=== PATIENT | female | born 1995 | race Caucasian/White ===

== ENCOUNTER 2016-04-21 06:41 | Emergency (ER) | payer SELFPAY ==
[2016-04-21] MEDS ORDERED: METOCLOPRAMIDE HCL 10 MG TABLET PO ONE (07:26)
--- NOTE | 2016-04-21 07:45 | ER Document Report ---
ED General - General Chief Complaint: Vag Bleeding, +preg <12wks Stated Complaint: LOWER ABDOMINAL CRAMPING Mode of Arrival: Ambulatory Information source: Patient Notes: Patient presents to the emergency department with complaints of possible miscarriage. Patient reports that she discovered she was recently she took a home test. Yesterday she went to a clinic and was told that she was probably having a miscarriage because they did not detect a gestational sac or a heart beat. Patient reports she started having some abdominal cramps today. She denies vaginal bleeding. She denies trauma. She denies fever vomiting diarrhea. Patient is TRAVEL OUTSIDE OF THE [place] IN LAST 30 DAYS: No - HPI Onset: This morning Onset/Duration: Sudden Quality of pain: Cramping Pain Level: 4 - declines pain medication Associated symptoms: Nausea Exacerbated by: Denies Relieved by: Denies Similar symptoms previously: Yes Recently seen / treated by doctor: Yes - Related Data Allergies/Adverse Reactions: Penicillins Allergy (Verified 04/21/16 06:44) Past Medical History - General Information source: Patient Last Menstrual Period: 02/18/17 - Social History Smoking Status: Unknown if Ever Smoked Cigarette use (# per day): No Chew tobacco use (# tins/day): No Frequency of alcohol use: None Drug Abuse: None Occupation: student Lives with: Family Family History: None Patient has suicidal ideation: No Patient has homicidal ideation: No - Medical History Medical History: Negative Renal/ Medical History: Denies: Hx Peritoneal Dialysis Past Surgical History: Reports: Hx Section Review of Systems - Review of Systems Notes: Review HPI for review of systems., All other systems negative Physical Exam - Vital signs Vitals: Temp Pulse Resp BP Pulse Ox 98.2 F 94 16 133/89 H 95 04/21/16 06:43 04/21/16 06:43 04/21/16 06:43 04/21/16 06:43 04/21/16 06:43 - Notes Notes: PHYSICAL EXAMINATION: GENERAL: Well-appearing and in no acute distress HEAD: Atraumatic, normocephalic. EYES: Pupils equal round , extraocular movements intact, sclera anicteric, conjunctiva are normal. ENT: nares patent, Moist mucous membranes. NECK: Normal range of motion, supple without lymphadenopathy LUNGS: CTAB and equal. No wheezes rales or rhonchi. HEART: Regular rate and rhythm without murmurs ABDOMEN: Soft, no pain with palpation. No guarding, no rebound c/o generalized cramping, BACK: C/O low back pain EXTREMITIES: Normal range of motion, no pitting edema. No cyanosis. NEUROLOGICAL: Cranial nerves grossly intact. Normal sensory/motor exams. PSYCH: Normal mood, normal affect. SKIN: Warm, Dry, normal turgor, no rashes or lesions noted - Genitourinary External exam: Normal Speculum exam: Cervix closed, Vaginal discharge Vaginal bleeding: None Bimanuel exam: Normal Course - Re-evaluation Re-evalutation: 04/21/16 09:26 Discussed STD cultures pending with patient. She reports she is now worried about STD. She does report history of genital herpes. No evidence of a flareup at this time. Patient was instructed on ultrasound. Patient was also instructed on hCG. She was instructed on importance of follow-up for repeat hCG. She was also instructed on the health department. - Vital Signs Vital signs: Temp Pulse Resp BP Pulse Ox 97.8 F 92 16 127/54 H 95 04/21/16 09:45 04/21/16 09:45 04/21/16 09:45 04/21/16 09:45 04/21/16 09:45 - Laboratory Result Diagrams: 04/21/16 07:55 04/21/16 07:55 Laboratory results interpreted by me: 04/21/16 04/21/16 04/21/16 07:55 07:55 07:55 MCH 26.7 L RDW 15.1 H Alkaline Phosphatase 127 H Beta HCG, Quant 60258.00 H Ur Leukocyte Esterase TRACE H - Diagnostic Test Radiology reviewed: Image reviewed, Reports reviewed - IUP sac, 6w1d, no pole Procedures - Pelvic Exam Pelvic exam Cultures obtained: Yes Wet prep obtained: Yes Herpes culture obtained: No POC sent to lab: No Foreign body removed: No Bimanual exam performed: Yes 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 No yolk sac or pole were identified. *Follow-up April 23 for a repeat hCG. Contact Pat at [phone] on April 26 between 11 AM to 11 PM [place] [address] *Take medication as prescribed- monitor for signs of allergic reaction, stop taking for trouble swallowing, hives, concerns *Push fluids *Follow up with your primary care provider, DEMO COORDINATOR or the health department within one week for recheck *Plan urine recheck in one week *Monitor your blood pressure. Your blood pressure was elevated today. This may be because you were anxious, in pain or because you need medication. It is important to follow up with your primary care provider for full evaluation. *Return to ED for worsening condition, changes, needs, increased abdominal pain vaginal bleeding concerns Prescriptions: Cefpodoxime Proxetil [Vantin 100 mg Tablet] 1 tab PO Q12 #14 tab Forms: Elevated Blood Pressure, Follow-Up Laboratory Testing, Return to School
[2016-04-21 08:16] LABS: ABSOLUTE LYMPHOCYTES (AUTO) 2.5 10^3/uL (0.5-4.7); ABSOLUTE MONOCYTES (AUTO) 0.5 10^3/uL (0.1-1.4); ABSOLUTE NEUT (AUTO) 5.9 10^3/uL (1.7-8.2); BASOPHILS % (AUTO) 0.4 % (0-2); EOSINOPHILS % (AUTO) 0.6 % (0-6); HEMATOCRIT 40.3 % (36.0-47.0); HEMOGLOBIN 13.2 g/dL (12.0-15.5); HGB HCT DIFFERENCE -0.7; LYMPHOCYTES % (AUTO) 27.7 % (13-45); MEAN CORPUSCULAR HEMOGLOBIN 26.7 pg (27.0-33.4); MEAN CORPUSCULAR HGB CONC 32.8 g/dL (32.0-36.0); MEAN CORPUSCULAR VOLUME 81 fl (80-97); MONOCYTES % (AUTO) 5.6 % (3-13); RED BLOOD COUNT 4.96 10^6/uL (3.72-5.28); RED CELL DISTRIBUTION WIDTH 15.1 % (11.5-14.0); SEGMENTED NEUTROPHILS % (AUTO) 65.7 % (42-78)
[2016-04-21 08:20] LABS: APPEARANCE,URINE SLIGHTLY-CLOUDY; BILIRUBIN,URINE NEGATIVE (NEGATIVE); GLUCOSE, URINE NEGATIVE (NEGATIVE); KETONES,URINE NEGATIVE (NEGATIVE); LEUKOCYTE ESTERASE,URINE TRACE (NEGATIVE); NITRITE,URINE NEGATIVE (NEGATIVE); PROTEIN,URINE NEGATIVE (NEGATIVE); URINE SPECIFIC GRAVITY 1.024; UROBILINOGEN,URINE NEGATIVE mg/dL (<2.0)
[2016-04-21 08:34] LABS: ALANINE AMINOTRANSFERASE 27 U/L (9-52); ALBUMIN 4.4 g/dL (3.5-5.0); ALKALINE PHOSPHATASE 127 U/L (38-126); ANION GAP 11 (5-19); ASPARTATE AMINO TRANSFERASE 17 U/L (14-36); BILIRUBIN,TOTAL 0.5 mg/dL (0.2-1.3); BLOOD UREA NITROGEN 9 mg/dL (7-20); CALCIUM 9.6 mg/dL (8.4-10.2); CARBON DIOXIDE 22 mmol/L (22-30); CHLORIDE 106 mmol/L (98-107); CREATININE RESULT 0.57 mg/dL (0.52-1.25); GLUCOSE 83 mg/dL (75-110); LIPASE 163.5 U/L (23-300); POTASSIUM 4.3 mmol/L (3.6-5.0); SODIUM 138.7 mmol/L (137-145); TOTAL PROTEIN 7.5 g/dL (6.3-8.2)
[2016-04-21 10:02] VITALS: BP 127/54
[2016-04-21 11:33] LABS: CHLAM PCR NOT DETECTED (NOT DETECT)
== END 2016-04-21 09:45 | disposition home or self-care (01) ==
LOC: ER 06:41
DX: O26.91 Pregnancy related conditions, unspecified, first trimester (principal); R10.9 Unspecified abdominal pain; Z3A.01 Less than 8 weeks gestation of pregnancy; Z88.0 Allergy status to penicillin
CPT/HCPCS: 36415; 76817; 80053; 81001; 83690; 84702; 85025; 86900; 86901; 87210; 87491; 87591; 99284

== ENCOUNTER 2016-04-26 15:58 | Emergency (ER) | payer MEDICAID ==
--- NOTE | 2016-04-26 16:48 | ER Document Report ---
ED Medical Screen (RME) - General Chief Complaint: Abdominal Cramping Stated Complaint: ITCHING,DISCHARGE Mode of Arrival: Ambulatory Information source: Patient Notes: 20-year-old female presents to the emergency department for repeat hCG. , LMP 02/19/16. Reports was seen in this ED 5 days ago and instructed to return for repeat blood work. I have greeted and performed a rapid initial assessment of this patient. A comprehensive ED assessment and evaluation of the patient, analysis of test results and completion of the medical decision making process will be conducted by additional ED providers. TRAVEL OUTSIDE OF THE [place] IN LAST 30 DAYS: No - Related Data Allergies/Adverse Reactions: Penicillins Allergy (Verified 04/26/16 16:37) Past Medical History - Social History Chew tobacco use (# tins/day): No Frequency of alcohol use: None Drug Abuse: None Renal/ Medical History: Denies: Hx Peritoneal Dialysis Past Surgical History: Reports: Hx Section Physical Exam - Vital signs Vitals: Temp Pulse Resp BP Pulse Ox 98.6 F 97 20 133/76 H 99 04/26/16 16:33 04/26/16 16:33 04/26/16 16:33 04/26/16 16:33 04/26/16 16:33 - General General appearance: Appears well, Alert In distress: None - Respiratory Respiratory status: No respiratory distress Course - Vital Signs Vital signs: Temp Pulse Resp BP Pulse Ox 98.6 F 97 20 133/76 H 99 04/26/16 16:33 04/26/16 16:33 04/26/16 16:33 04/26/16 16:33 04/26/16 16:33
[2016-04-26 19:37] LABS: APPEARANCE,URINE SLIGHTLY-CLOUDY; BILIRUBIN,URINE NEGATIVE (NEGATIVE); GLUCOSE, URINE NEGATIVE (NEGATIVE); KETONES,URINE NEGATIVE (NEGATIVE); LEUKOCYTE ESTERASE,URINE TRACE (NEGATIVE); NITRITE,URINE NEGATIVE (NEGATIVE); PROTEIN,URINE NEGATIVE (NEGATIVE); URINE SPECIFIC GRAVITY 1.019; UROBILINOGEN,URINE NEGATIVE mg/dL (<2.0)
--- NOTE | 2016-04-26 23:44 | ER Document Report ---
ED GI/ - General Mode of Arrival: Ambulatory Information source: Patient TRAVEL OUTSIDE OF THE [place] IN LAST 30 DAYS: No - HPI Patient complains to provider of: Vaginal discharge, Vaginal pain - "cramping" Onset: Other - 4 days ago Location: Vaginal Menstrual period history: Associated symptoms: Other - see above <SUMI COELLO - Last Filed: 04/27/16 06:40> - General Mode of Arrival: Ambulatory TRAVEL OUTSIDE OF THE [place] IN LAST 30 DAYS: No <EDUARDO GARG - Last Filed: 04/27/16 08:21> - General Chief Complaint: Abdominal Cramping Stated Complaint: ITCHING,DISCHARGE Notes: 20 year old female presents to the ED complaining of an increase in vaginal cramping, discharge, and itching that started 4 days ago. Patient states that she was seen in the ED 4 days ago for the same symptoms and was told she had a UTI. Patient has been taking Vantin for the UTI. Patient was also told to return to the ED for repeat blood work secondary to her . (SUMI COELLO) - Related Data Allergies/Adverse Reactions: Penicillins Allergy (Verified 04/26/16 16:37) Past Medical History - General Information source: Patient - Social History Smoking Status: Never Smoker Chew tobacco use (# tins/day): No Frequency of alcohol use: None Drug Abuse: None Family History: None Patient has suicidal ideation: No Patient has homicidal ideation: No Renal/ Medical History: Reports: Other - UTI. Denies: Hx Peritoneal Dialysis Past Surgical History: Reports: Hx Section <SUMI COELLO - Last Filed: 04/27/16 06:40> - General Information source: Patient - Social History Smoking Status: Never Smoker Chew tobacco use (# tins/day): No Frequency of alcohol use: None Drug Abuse: None Family History: None Patient has suicidal ideation: No Patient has homicidal ideation: No Renal/ Medical History: Denies: Hx Peritoneal Dialysis Past Surgical History: Reports: Hx Section <EDUARDO GARG - Last Filed: 04/27/16 08:21> Review of Systems - Review of Systems Constitutional: No symptoms reported EENT: No symptoms reported Cardiovascular: No symptoms reported Respiratory: No symptoms reported Gastrointestinal: No symptoms reported Genitourinary: No symptoms reported Female Genitourinary: See HPI, , Vaginal discharge, Other - vaginal cramping and itching Musculoskeletal: No symptoms reported Skin: No symptoms reported Hematologic/Lymphatic: No symptoms reported Neurological/Psychological: No symptoms reported -: Yes All other systems reviewed and negative <SUMI COELLO - Last Filed: 04/27/16 06:40> Physical Exam - General General appearance: Alert In distress: None - HEENT Head: Normocephalic, Atraumatic Eyes: Normal Extraocular movements intact: Yes Pupils: PERRL - Respiratory Respiratory status: No respiratory distress Breath sounds: Normal - Cardiovascular Rhythm: Regular Heart sounds: Normal auscultation - Abdominal Inspection: Normal - Back Back: Normal - Extremities General upper extremity: Normal inspection, Normal ROM General lower extremity: Normal inspection, Normal ROM - Neurological Neuro grossly intact: Yes Cognition: Normal Orientation: AAOx4 Young Coma Scale Eye Opening: Spontaneous [place] Coma Scale Verbal: Oriented Young Coma Scale Motor: Obeys Commands Young Coma Scale Total: 15 Speech: Normal - Psychological Associated symptoms: Normal affect, Normal mood - Skin Skin Temperature: Warm Skin Moisture: Dry Skin Color: Normal <SUMI COELLO - Last Filed: 04/27/16 06:40> Course <SUMI COELLO - Last Filed: 04/27/16 06:40> <EDUARDO GARG - Last Filed: 04/27/16 08:21> - Re-evaluation Re-evalutation: 04/27/16 Patient with uptrending hCG. Ultrasound within normal limits except for small subchorionic bleed. Patient with yeast infection symptoms after being on medication for UTI. Recommend Monistat. Follow-up with [facility]. Return if any worsening or concerning symptoms. (EDUARDO GARG) - Vital Signs Vital signs: Temp Pulse Resp BP Pulse Ox 97 F L 66 18 122/88 H 96 04/27/16 00:37 04/27/16 00:37 04/27/16 00:37 04/27/16 00:37 04/27/16 00:37 (SUMI COELLO) (EDUARDO GARG) - Laboratory Laboratory results interpreted by fl: 04/26/16 04/26/16 18:45 19:16 Beta HCG, Quant 67508.00 H Ur Leukocyte Esterase TRACE H (SUMI COELLO) (EDUARDO GARG) Discharge <SUMI COELLO - Last Filed: 04/27/16 06:40> <EDUARDO GARG - Last Filed: 04/27/16 08:21> - Discharge Clinical Impression: Yeast infection Vaginal bleeding in Qualifiers: Trimester: first trimester Qualified Code(s): O46.91 - Antepartum hemorrhage, unspecified, first trimester Condition: Stable Disposition: HOME, SELF-CARE Instructions: Bleeding During Early ([facility]), ([facility]) Additional Instructions: Please use Monistat [id number] for yeast infection. Please follow-up with your [facility] this week. Forms: Return to Work Scribe Attestation: 04/27/16 08:20 I personally performed the services described in the documentation, reviewed and edited the documentation which was dictated to the scribe in my presence, and it accurately records my words and actions. (EDUARDO GARG) Scribe Documentation - Scribe Written by Scribe:: Amaya Sainz, 04/27/2016 [id number] acting as scribe for :: Dee <SUMI COELLO - Last Filed: 04/27/16 06:40>
[2016-04-27 00:39] VITALS: BP 122/88
== END 2016-04-27 00:37 | disposition home or self-care (01) ==
LOC: ER 15:58
DX: O46.91 Antepartum hemorrhage, unspecified, first trimester (principal); B37.9 Candidiasis, unspecified; R10.9 Unspecified abdominal pain; N89.8 Other specified noninflammatory disorders of vagina
CPT/HCPCS: 36415; 76817; 81001; 84702; 99284